=== PATIENT | female | born 1995 | race Caucasian/White ===

== ENCOUNTER → 2018-05-01 09:18 | Emergency (ER) | payer BC ==
--- NOTE | 2018-05-01 10:06 | ED ---
Psychiatric Complaint - HPI Summary HPI Summary: This patient is a 23 year old F presenting to [facility] with a chief complaint of SI and self harm that she inflicted last night. Pt had a recent break up and saw her ex boyfriend out with someone else last night, she then consumed a large amount of etoh. At this point she then cut her left wrist. The patient rates the pain 2/10 in severity. Pt has cut herself in the past and afraid of SSRIs and does not take them. - History Of Current Complaint Chief Complaint: EDMentalHealth Time Seen by Provider: 05/01/18 09:46 Hx Obtained From: Patient Onset/Duration: Still Present Timing: Constant Severity Initially: Moderate Severity Currently: Moderate Character: Depressed Has Suicidal: Reports: Thoughts, With A Plan, Demonstrates Gesture - Allergies/Home Medications Allergies/Adverse Reactions: Allergies Allergy/AdvReac Type Severity Reaction Status Date / Time No Known Allergies Allergy Verified 05/01/18 10:03 Home Medications: Home Medications Desogestrel-Ethinyl Estradiol [Jethro 28 Day Tablet] 1 tab PO DAILY 05/01/18 [ History Confirmed 05/01/18] PMH/Surg Hx/FS Hx/Imm Hx Cardiovascular History: Denies: Hx Congenital Heart Disease, Hx Deep Vein Thrombosis, Hx Hypertension , Hx Pacemaker/ICD Respiratory History: Denies: Hx Asthma, Hx Chronic Obstructive Pulmonary Disease (COPD), Hx Pneumonia GI History: Denies: Hx Gastroesophageal Reflux Disease, Hx Hiatal Hernia - Immunization History Date of Tetanus Vaccine: unknwn Infectious Disease History: No Infectious Disease History: Denies: Traveled Outside the [place] in Last 30 Days - Family History Known Family History: Negative: Renal Disease, Respiratory Disease, Seizure Disorder - Social History Occupation: Employed Full-time Alcohol Use: Occasionally Substance Use Type: Reports: None Hx Tobacco Use: No Smoking Status (MU): Never Smoked Tobacco Review of Systems Positive: Other - self Inflicted abrasion Positive: Depressed, Other - SI All Other Systems Reviewed And Are Negative: Yes Physical Exam - Summary Physical Exam Summary: Appearance: The patient is well-nourished in no acute distress and in no acute pain. Skin: there are two small superficial volar lacerations on the left wrist over the tattoo HEENT: The head is normocephalic and atraumatic. The pupils are equal and reactive. The conjunctivae are clear and without drainage. Nares are patent and without drainage. Mouth reveals moist mucous membranes and the throat is without erythema and exudate. The external ears are intact. The ear canals are patent and without drainage. The tympanic membranes are intact. Neck: The neck is supple with full range of motion and non-tender. There are no carotid bruits. There is no neck vein distension. Respiratory: Chest is non-tender. Lungs are clear to auscultation and breath sounds are symmetrical and equal. Cardiovascular: Heart is regular rate and rhythm. There is no murmur or rub auscultated. There is no peripheral edema and pulses are symmetrical and equal. Abdomen: The abdomen is soft and non-tender. There are normal bowel sounds heard in all four quadrants and there is no organomegaly palpated. Musculoskeletal: There is no back tenderness noted. Extremities are non-tender with full range of motion. There is good capillary refill. There is no peripheral edema or calf tenderness elicited. Neurological: Patient is alert and oriented to person, place and time. The patient has symmetrical motor strength in all four extremities. Cranial nerves are grossly intact. Deep tendon reflexes are symmetrical and equal in all four extremities. Psychiatric: depressed affect Triage Information Reviewed: Yes Vital Signs On Initial Exam: Initial Vitals Temp Pulse Resp BP Pulse Ox 98.6 F 97 16 152/91 98 05/01/18 09:22 05/01/18 09:22 05/01/18 09:22 05/01/18 09:22 05/01/18 09:22 Vital Signs Reviewed: Yes Diagnostics - Vital Signs Vital Signs Temp Pulse Resp BP Pulse Ox 05/01/18 09:22 98.6 F 97 16 152/91 98 - Laboratory Result Diagrams: 05/01/18 10:23 05/01/18 10:23 Lab Statement: Any lab studies that have been ordered have been reviewed, and results considered in the medical decision making process. Course/Dx - Course Course Of Treatment: Ms. Baugh recently broke up with her boyfriend that she had been living with for 2 years. That meant she had to move back in with her parents and she has been depressed. Last night she saw her X at a bar with another woman and became more depressed after drinking a significant quantity of alcohol. She cut her left arm superficially which she has done in the past in middle school but not for many years. Here she was noted to still be intoxicated with a blood alcohol of 200 and allowed to sober up before undergoing a mental health eval. Her lacerations were cleaned and Steri- Stripped by nursing. The psychiatrist felt that she was safe for discharge and she was in agreement. - Differential Dx/Clinical Impression Provider Diagnosis: Situational depression, Laceration of arm Discharge - Sign-Out/Discharge Documenting (check all that apply): Patient Departure - Discharge Plan Condition: Stable Disposition: HOME Referrals: Regi Jeronimo MD [Primary Care Provider] - - Billing Disposition and Condition Condition: STABLE Disposition: Home - Attestation Statements Document Initiated by Scribe: Yes Documenting Scribe: Onur Scott Provider For Whom Christellee is Documenting (Include Credential): Tres Last MD Scribe Attestation: IOnur, scribed for Tres Last MD on 05/01/18 at 1749. Scribe Documentation Reviewed: Yes Provider Attestation: The documentation as recorded by the Onur valencia accurately reflects the service I personally performed and the decisions made by , Tres Last MD
[2018-05-01 10:18] LABS: Urine Appearance Clear; Urine Blood Negative (Negative); Urine Color Straw; Urine Ketones Negative (Negative); Urine Protein Negative (Negative); Urine Specific Gravity 1.008 (1.010-1.030); Urine Urobilinogen Negative (Negative)
[2018-05-01 10:34] LABS: ABS Basophils 0.1 10^3/ul (0-0.2); ABS Eosinophils 0 10^3/ul (0-0.6); ABS Lymphocytes 3.4 10^3/ul (1.0-4.8); ABS Monocytes 0.6 10^3/ul (0-0.8); ABS Neutrophils 2.5 10^3/ul (1.5-7.7); ABS Nucleated RBC 0 10^3/ul; Eosinophil % 0.6 % (0-6); Hematocrit 38 % (35-47); Lymphocyte % 51.1 % (25-47); Mean Corpuscular HGB Conc 34 g/dl (31-36); Mean Corpuscular Hemoglobin 28 pg (27-31); Mean Corpuscular Volume 81 fL (80-97); Mean Platelet Volume 8.3 um3 (7.4-10.4); Nucleated Red Blood Cells % 0.2; Platelet Count 264 10^3/ul (150-450); Red Blood Count 4.73 10^6/ul (4.00-5.40); Red Cell Distribution Width 13 % (10.5-15); White Blood Count 6.6 10^3/ul (3.5-10.8)
[2018-05-01 10:51] LABS: EGFR Non-African American 98.8 (>60)
[2018-05-01 12:46] VITALS: BP 113/86
== END | disposition home or self-care (01) ==
LOC: ED 09:18
DX: R45.851 Suicidal ideations (principal); S41.119A Laceration without foreign body of unspecified upper arm, initial encounter; F32.9 Major depressive disorder, single episode, unspecified; X78.9XXA Intentional self-harm by unspecified sharp object, initial encounter; Y92.9 Unspecified place or not applicable
CPT/HCPCS: 36415; 80053; 80307; 80320; 80329; 81003; 84443; 84702; 85025; 99283; G0480